=== PATIENT | female | born 1955 | race Caucasian/White ===

== ENCOUNTER 2022-04-23 10:00 | Outpatient (RCR) | payer MEDICARE, OTHER, SELFPAY | END 2022-05-27 15:13 | disposition home or self-care (01) | PROVIDERS: Visit Provider Orthopaedic Surgery Sports Medicine | DX: M17.12 Unilateral primary osteoarthritis, left knee (principal); Z51.89 Encounter for other specified aftercare | CPT/HCPCS: 97110; 97112; 97116; 97140; 97530 ==

== ENCOUNTER 2023-02-28 14:42 | Outpatient (CLI) | payer MEDICARE, OTHER, SELFPAY | END 2023-02-28 14:43 | disposition home or self-care (01) | LOC: NFLDREF 03-02 06:07 | PROVIDERS: PCP Family Medicine; Referring Provider Family Medicine; Visit Provider Family Medicine | DX: Z01.818 Encounter for other preprocedural examination (principal); G47.00 Insomnia, unspecified | CPT/HCPCS: 87077; 87086; 87186 ==

== ENCOUNTER 2023-03-10 06:45 | Day surgery (SDC) | payer MEDICARE, OTHER, SELFPAY ==
[2023-03-10] VITALS (8 sets, daily range): BP systolic 110–160; BP diastolic 67–94; PULSE 52–76; RESP 16; TEMP 36.6–36.7; O2SAT 93–99; BMI 51.0
[2023-03-10] MEDS: LACTATED RINGERS 1000 ML 1,000 ML 100 ML IV (06:55)
[2023-03-10] MEDS: SODIUM CHLORIDE 0.9 % (FLUSH) 10 ML SYRINGE IVF (07:32)
--- NOTE | 2023-03-10 07:33 | SUR.PREOP ---
TIME?OUT:?0749 PT/RN/MDA?VERIFICATION?OF?SURGICAL?SITE Right Arm,?PROCEDURE Axe Block,?AND?CONSENT OBTAINED?PRIOR?TO?INVASIVE?PROCEDURE.
[2023-03-10] MEDS: fentaNYL 100 MCG/2 ML inj IVP (07:50)
[2023-03-10] MEDS: MIDAZOLAM HCL 1 MG/ML inj IVP (07:50)
--- NOTE | 2023-03-10 08:08 | W.PM.NB ---
Nerve Block Nerve Block Time Seen by Provider: 07:56 Date Seen: 03/10/23 Type of block requested by surgeon for post-operative analgesia: axillary Side: right Time out performed: Yes Verification of patient name: Yes Verification of date of : Yes Site marking: site marked Name of person performing procedure: Hussein Continuous monitoring Was continuous monitoring of O2 sat, B/P, director, recorded every 15 minutes?: Yes Procedure Checklist: sterile prep, needles and gloves Ultrasound guided. Images saved: Yes Medications given in 5ml increments after negative aspiration: Ropivicaine %: 0.5 mL: 30 Needle gauge: 22 Patient tolerated procedure well: Yes Additional comments: Needle noted adjacent to nerve Block Charges Block Charge (with Pro Fee): Brachial Plexus Use of Ultrasound Machine for Block: Yes- US Guidance/pain block
--- NOTE | 2023-03-10 08:09 | W.ANESCHARGE ---
Anesthesia Charges Start Date/Time Anesthesia Start Date: 03/10/23 Anesthesia Start Time: 08:08 Stop Date/Time Anesthesia Stop Date: 03/10/23 Anesthesia Stop Time: 10:14 Summary Extremes of Age - Over 70 or under 1: MDA
[2023-03-10] MEDS: CEFAZOLIN 2 GM in 0.9 % SODIUM CHLORIDE Mini-bag 100 ML IVPB (08:17)
--- NOTE | 2023-03-10 09:51 | P.ORPRC_ITS ---
Procedure Note Date of procedure: 03/10/23 Procedure: PREOPERATIVE DIAGNOSIS: 1. Right thumb CMC osteoarthritis, primary, severe POSTOPERATIVE DIAGNOSIS: 1. Right thumb CMC osteoarthritis, primary, severe PROCEDURE: 1. Right thumb CMC arthroplasty with transfer of FCR tendon carpometacarpal area without free graft / tendon interposition (LRTI) SURGEON: Imtiaz Fabian M.D. UMBRELLA TIPPER MACHINE: Linda Samuel Pa-c. Of note, an advertising assistant was critical for this case to aid in patient positioning, arm manipulation, instrument exchange, and closure. ANESTHESIA: Regional block EBL: 5 mL TOURNIQUET: 78 min at 250 torr-forearm tourniquet IMPLANTS: Arthrex 4.75 mm BioComposite interference screw COMPLICATIONS: None evident INDICATIONS: The patient is a pleasant 68-year-old female. They have experienced significant pain about the thumb CMC joint on the right upper extremity. Nonoperative management including cortisone injection, activity modification, bracing, rest, oral NSAIDs, etc has not provided long-term relief. Given the failure of nonoperative management, surgery was recommended. FINDINGS: Severe osteoarthritis of the 1st CMC joint seen by osteophyte formation, chondral loss, and joint space narrowing, consistent with CMC osteoarthritis DESCRIPTION OF PROCEDURE: After a thorough discussion of risks, benefits, and alternatives, the patient was brought to the operating room and placed upon the operating table. Induction of anesthesia was undertaken as previously noted. 2 g IV Ancef was administered within 1 hr incision preoperatively. Appropriate time-out was performed identifying proper patient, site, and procedure. The right upper extremity was prepped and draped in the appropriate sterile fashion using ChloraPrep. The limb was exsanguinated and tourniquet inflated. A curvilinear incision was made along the ulnar border of the 1st metacarpal with the curved portion extending volar just proximal to the CMC joint. Sharp incision through skin and blunt dissection to subcutaneous tissue allowed identification and protection of the crossing neurovascular structures including the SBRN. The dorsal capsule off the metacarpal base was sharply divided and subperiosteally elevated. The crossing branch of radial artery was visualized in the proximal extent of the wound, its small branches to the capsule were coagulated, but the rest the artery was protected. The trapezium was freed from the surrounding capsular tissues circumferentially with a combination of 15 blade and a [place] blade. After freeing the trapezium from the superficial tissues, the bone was quartered with a microsagittal saw a majority of the way through the bone. Caution was taken not to penetrate completely so as not to injure the FCR tendon in the deep portion of the wound. The osteotomy was completed with an osteotome. The quartered fragments were then removed with a combination of a rongeur, and sharp dissection cautiously with the [place] blade. We then turned our attention to the FCR tendon harvest for transfer. The tendon was easily palpable approximately 10 cm proximal from the wrist crease. A transverse incision was made overlying this musculotendinous junction. Blunt dissection through subcutaneous tissue allowed identification of the FCR tendon and sheath. The FCR was probed in the deep portion of the trapezium wound, and after talking on this, confirmed the more proximal location of the FCR. The FCR sheath was entered, the tendon sharply divided from the deeper muscle, and a Metzenbaum scissors was utilized to release any adhesions within the sheath distally toward the wrist. We also released any adhesions within the FCR tunnel through the carpus with a [place] elevator. Then a combination of a probe and a hemostat allowed us to bluntly free and exposed the FCR tendon out the trapezial void. 2-0 FiberWire was utilized to capture the deep capsule for eventual anchovy securing of the transferred FCR tendon and a 2nd 2-0 FiberWire was passed near the FCR tendon insertion for eventual reapproximation of the looped tendon onto itself. In order to pass it through the metacarpal base, a guide pin was passed approximately 12 mm distal from the metacarpal base in plane with the thumbnail directed towards the metacarpal base coming out through the articular surface / beak junction. After confirming proper location, this was over reamed with a 5.5 mm Reamer. A tendon Passer was then utilized to help transfer the freed FCR tendon through this tunnel. Once the thumb was held in proper position of slight traction and slight extension with neutral rotation and abduction, the tendon was looped back on itself and tied with the previously passed 2-0 FiberWire secured to the deeper FCR near the 2nd metacarpal base distal insertion site. Next, the interference screw was placed while controlling the thumb from distal toward the proximal. We then reapproximated the dorsal capsule through the now passed tendon with 3-0 Vicryl. This occurred while positioning the thumb metacarpal in slight abduction and extension with proper height maintained based on direct visualization to the 2nd metacarpal base. Finally, 2-0 FiberWire was utilized to capture the deep capsule for eventual anchovy securing of the transferred FCR tendon. We then created an anchovy with remaining tendon with 2 separate Ryan needles that allowed us to pass the tails of the deeper capsular 2-0 FiberWire through this. Excellent securing of the tendon was achieved. A thorough irrigation with normal saline was then performed. Closure was performed with 3-0 Vicryl for subcutaneous, and 4-0 Monocryl for subcuticular layers, respectively. PLAN: 1. Elevate operative extremity at or above heart level. 2. Ice, acetominophen and/or ibuprofen, and Percocet for pain as needed. 3. Finger/wrist range of motion as tolerated. 4. Keep the splint clean, dry, and intact until follow-up. 5. Follow up with PA visit in 2 weeks removal of splint and application of thumb spica cast. Then follow-up at the 4 week amy for removal of cast and OT visit for Orthoplast splint fabrication which should be scheduled immediately after the orthopedic clinic visit that day on the 4 week amy
--- NOTE | 2023-03-10 10:17 | W.ANESCHARGE ---
Anesthesia Charges Start Date/Time Anesthesia Start Date: 03/10/23 Anesthesia Start Time: 08:08 Stop Date/Time Anesthesia Stop Date: 03/10/23 Anesthesia Stop Time: 10:14
== END 2023-03-10 11:17 | disposition home or self-care (01) ==
PROVIDERS: PCP Family Medicine; Visit Provider Orthopaedic Surgery Sports Medicine
PROC: (CPT 25447; principal; 2023-03-10 08:15)
DX: M18.11 Unilateral primary osteoarthritis of first carpometacarpal joint, right hand (principal); G89.18 Other acute postprocedural pain
CPT/HCPCS: 25447; 25310; 01810; 64415; 76942; 99100; A4580; C1713; J0690; J2250; J2704; J2795; J3010; J3490; J7120

== ENCOUNTER 2023-05-27 10:30 | Outpatient (RCR) | payer MEDICARE, OTHER, SELFPAY ==
--- NOTE | 2023-04-09 19:13 | OT.OPOE ---
OT Outpatient Ortho Eval OT Outpatient Ortho Eval* Start: 04/09/23 07:16 Freq: Status: Active Protocol: Document 04/09/23 07:17 AMB (Rec: 04/09/23 18:16 AMB [id number]) E-signed By Isa Rust, OTR/L, CLT, TAPE WEAVER OT OP Ortho Eval Details Complexity Complexity Low Insurance Information Insurance Information Medicare B Outpatient History/Precautions Current Condition/Medical Diagnosis Referring Provider Teo Duval PA-C Treatment Diagnosis RUE CMC arthroplasty Date of Onset 03/10/23 Medical Conditions HTN,CA Other Conditions PMH (copied from ortho chart) Active Problems (Updated 04/01 @ 12:17 by Teo Duval PA-C) Osteoarthritis of carpometacarpal joint of left thumb (Acute) Severe M18.12 - Unilateral primary osteoarthritis of first carpometacarpal joint, left hand (ICD-10) Osteoarthritis of carpometacarpal joint of right thumb (Acute) severe, [id number] M18.11 - Unilateral primary osteoarthritis of first carpometacarpal joint, right hand (ICD-10) History of arthroplasty of right wrist (Acute) 2 weeks postoperative right thumb CMC arthroplasty with transfer of FCR tendon (2022) Z96.631 - Presence of right artificial wrist joint (ICD-10 ) Group B streptococcal UTI ( Acute) N39.0 - Urinary tract infection, site not specified (ICD-10) B95.1 - Streptococcus, group b , as the cause of diseases classified elsewhere (ICD-10) Osteoarthritis of right knee ( Acute) moderate-severe M17.11 - Unilateral primary osteoarthritis, right knee ( ICD-10) Normal cardiac stress test ( Acute) 12/21, stress echo, done for skipped heart beats 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 [place] C7A.8 - Other malignant neuroendocrine tumors (ICD-10) Malignant melanoma (Acute) ressected 09/2013; follows with derm C43.9 - Malignant melanoma of skin, unspecified (ICD-10) Medical History (Updated 04/01 @ 12:17 by Teo Duval PA-C) History of arthroplasty of right wrist Z96.631 - Presence of right artificial wrist joint (ICD-10 ) Anxiety F41.9 - Anxiety disorder, unspecified (ICD-10) Arthritis M19.90 - Unspecified osteoarthritis, unspecified site (ICD-10) Incontinence R32 - Unspecified urinary incontinence (ICD-10) Reflux esophagitis K21.00 - Gastro-esophageal reflux disease with esophagitis, without bleeding (ICD-10) Cardiac arrhythmia I49.9 - Cardiac arrhythmia, unspecified (ICD-10) Elevated cholesterol E78.00 - Pure hypercholesterolemia, unspecified (ICD-10) Hypertension I10 - Essential (primary) hypertension (ICD-10) Benign thyroid cyst E04.1 - Nontoxic single thyroid nodule (ICD-10) Surgical History (Updated @ 12:19 by Heather Byrd ~ [facility], [facility]) History of arthroplasty of finger of right hand (03/10/23 ) Z96.691 - Finger-joint replacement of right hand (ICD -10) History of left knee replacement (01/21/22) Z96.652 - Presence of left artificial knee joint (ICD-10) Status post surgical removal of malignant neoplasm of skin Z98.890 - Other specified postprocedural states (ICD-10) Status post 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 Pt had her cast removed today, referred to OT for custom splinting and to start ROM. Pt will be leaving for a cruise this week-end and would like to resume her therapy in the [facility] clinic when she returns home as it is closer for her to drive. Pain Assessment Pain Present Pain Present Pain Reported Location RUE hand Description Dull, Achy Intensity 2 Range of Motion and Strength Elbow/Forearm Range of Motion and Strength Elbow/Forearm Range of Motion and AROM of BUE elbows and Strength forearms are WNL throughout. Wrist Range of Motion and Strength Wrist Range of Motion and Strength AROM of LUE wrist and hand is WNL throughout. AROM of the RUE wrist flexion is 55, ext is 50, UD is 30, RD is 5. Pt demonstrates opposition to the tip of 5th digit. Composite finger flexion 2-5 is to proximal palm. Thumb IP is 0- 55, radial abd is 30, palmar abd is 45. Strength testing is not appropriate at this stage . OT Objective Data Hand Hand Dominance Right Skin/Wounds/Edema Comments Surgical incisions are clean and dry, covered with surgical glue, no s/s of infection. OT Problems Problems Problems Decreased Strength,Decreased Range of Motion,Decreased Dexterity,Pain,Decreased Coordination,Lifting,Gripping, Pinching Other Problems Writing,Opening Containers, Computer,Fasteners Assessment Assessment Assessment Pt is a very pleasant 68yo F presenting to OT 4 weeks and 2 days s/p RUE CMC arthroplasty with orders for custom splinting and initiation of HEP. Pt demonstrates limited AROM, weakness, mild swelling, and pain in her RUE which is also her dominant hand. These impairments limit pt's ability to open containers, write, use the computer, brush her teeth and hair, web site manager, lift, etc. Pt will benefit from skilled OT intervention for custom splinting for protective healing and to address deficits in order to restore full, pain-free use of her RUE. Occupational Therapy Treatment Plan - OP Potential Rehabilitation Potential Good Set Goals Goals Set with Patient Yes Goals Goals 1. Pt will be independent and compliant with HEP and splinting in order to allow proper healing and to resume full, pain-free use of the RUE . 4 weeks. 2. Pt will demonsrate full, pain-free AROM of the RUE in order to improve ability to grasp and hold items, use computer and resume independence in all aspects of her ADL and IADL routine. 8 weeks 3. Pt will demonstrate pain- free RUE web site manager and pinch strength comparable to her LUE in order to improve ability to grasp heavier items, open containers and lift heavier items in her kitchen. 10-12 weeks. Treatment Plan Treatment Plan Evaluation,Edema Control,Joint Mobilization,Manual Therapy, Splinting,Ultrasound,Wound Care/Scar Management, Therapeutic Exercise, Therapeutic Activities,Self Care/Home Management,Education Expected Frequency 1-2x Week Expected Duration 8-10 Weeks Home Program Home Program Home Program Initiated,Revised,Compliant, Non-compliant Home Program Specifics 04/09/23 Initiated HEP including elevated non-resisted mm pumps, non resisted finger/ thumb ext/abd, opposition, IP flexion, radial and palmar abd , thumb ext, wrist flex/ext, and wrist RD/UD. Certification Certification I Certify That: Therapy Services Provided, Therapy Plan Established, Therapy Plan Reviewed Recertification Information Recertification Information Initial Certification Date 04/09/23 Recertification Due Date 07/08/23 Reasons to Continue Skilled Therapy Initiated OT today to address orders for custom splinting and rehabilitation following RUE CMC arthroplasty Rehabilitation Potential Good Continued Plan of Care and Interventions See above Provider Signature Shows Agreement With POC & Medical Necessity Physician Comment/Change Comment or Changes Physician NPI Number #
--- NOTE | 2023-04-09 19:13 | OT.OPOE ---
OT Outpatient Ortho Eval OT Outpatient Ortho Eval* Start: 04/09/23 07:16 Freq: Status: Active Protocol: Document 04/09/23 07:17 AMB (Rec: 04/09/23 18:16 AMB [id number]) E-signed By Isa Rust, OTR/L, CLT, PYTHON WEB DEVELOPER OT OP Ortho Eval Details Complexity Complexity Low Insurance Information Insurance Information Medicare B Outpatient History/Precautions Current Condition/Medical Diagnosis Referring Provider Teo Duval PA-C Treatment Diagnosis RUE CMC arthroplasty Date of Onset 03/10/23 Medical Conditions HTN,CA Other Conditions PMH (copied from ortho chart) Active Problems (Updated 04/01 @ 12:17 by Teo Duval PA-C) Osteoarthritis of carpometacarpal joint of left thumb (Acute) Severe M18.12 - Unilateral primary osteoarthritis of first carpometacarpal joint, left hand (ICD-10) Osteoarthritis of carpometacarpal joint of right thumb (Acute) severe, [id number] M18.11 - Unilateral primary osteoarthritis of first carpometacarpal joint, right hand (ICD-10) History of arthroplasty of right wrist (Acute) 2 weeks postoperative right thumb CMC arthroplasty with transfer of FCR tendon (2022) Z96.631 - Presence of right artificial wrist joint (ICD-10 ) Group B streptococcal UTI ( Acute) N39.0 - Urinary tract infection, site not specified (ICD-10) B95.1 - Streptococcus, group b , as the cause of diseases classified elsewhere (ICD-10) Osteoarthritis of right knee ( Acute) moderate-severe M17.11 - Unilateral primary osteoarthritis, right knee ( ICD-10) Normal cardiac stress test ( Acute) 12/21, stress echo, done for skipped heart beats 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 [place] C7A.8 - Other malignant neuroendocrine tumors (ICD-10) Malignant melanoma (Acute) ressected 09/2013; follows with derm C43.9 - Malignant melanoma of skin, unspecified (ICD-10) Medical History (Updated 04/01 @ 12:17 by Teo Duval PA-C) History of arthroplasty of right wrist Z96.631 - Presence of right artificial wrist joint (ICD-10 ) Anxiety F41.9 - Anxiety disorder, unspecified (ICD-10) Arthritis M19.90 - Unspecified osteoarthritis, unspecified site (ICD-10) Incontinence R32 - Unspecified urinary incontinence (ICD-10) Reflux esophagitis K21.00 - Gastro-esophageal reflux disease with esophagitis, without bleeding (ICD-10) Cardiac arrhythmia I49.9 - Cardiac arrhythmia, unspecified (ICD-10) Elevated cholesterol E78.00 - Pure hypercholesterolemia, unspecified (ICD-10) Hypertension I10 - Essential (primary) hypertension (ICD-10) Benign thyroid cyst E04.1 - Nontoxic single thyroid nodule (ICD-10) Surgical History (Updated @ 12:19 by [facility]rd ~ [facility] History of arthroplasty of finger of right hand (03/10/23 ) Z96.691 - Finger-joint replacement of right hand (ICD -10) History of left knee replacement (01/21/22) Z96.652 - Presence of left artificial knee joint (ICD-10) Status post surgical removal of malignant neoplasm of skin Z98.890 - Other specified postprocedural states (ICD-10) Status post 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 Pt had her cast removed today, referred to OT for custom splinting and to start ROM. Pt will be leaving for a cruise this week-end and would like to resume her therapy in the [facility] when she returns home as it is closer for her to drive. Pain Assessment Pain Present Pain Present Pain Reported Location RUE hand Description Dull, Achy Intensity 2 Range of Motion and Strength Elbow/Forearm Range of Motion and Strength Elbow/Forearm Range of Motion and AROM of BUE elbows and Strength forearms are WNL throughout. Wrist Range of Motion and Strength Wrist Range of Motion and Strength AROM of LUE wrist and hand is WNL throughout. AROM of the RUE wrist flexion is 55, ext is 50, UD is 30, RD is 5. Pt demonstrates opposition to the tip of 5th digit. Composite finger flexion 2-5 is to proximal palm. Thumb IP is 0- 55, radial abd is 30, palmar abd is 45. Strength testing is not appropriate at this stage . OT Objective Data Hand Hand Dominance Right Skin/Wounds/Edema Comments Surgical incisions are clean and dry, covered with surgical glue, no s/s of infection. OT Problems Problems Problems Decreased Strength,Decreased Range of Motion,Decreased Dexterity,Pain,Decreased Coordination,Lifting,Gripping, Pinching Other Problems Writing,Opening Containers, Computer,Fasteners Assessment Assessment Assessment Pt is a very pleasant 68yo F presenting to OT 4 weeks and 2 days s/p RUE CMC arthroplasty with orders for custom splinting and initiation of HEP. Pt demonstrates limited AROM, weakness, mild swelling, and pain in her RUE which is also her dominant hand. These impairments limit pt's ability to open containers, write, use the computer, brush her teeth and hair, treer, lift, etc. Pt will benefit from skilled OT intervention for custom splinting for protective healing and to address deficits in order to restore full, pain-free use of her RUE. Occupational Therapy Treatment Plan - OP Potential Rehabilitation Potential Good Set Goals Goals Set with Patient Yes Goals Goals 1. Pt will be independent and compliant with HEP and splinting in order to allow proper healing and to resume full, pain-free use of the RUE . 4 weeks. 2. Pt will demonsrate full, pain-free AROM of the RUE in order to improve ability to grasp and hold items, use computer and resume independence in all aspects of her ADL and IADL routine. 8 weeks 3. Pt will demonstrate pain- free RUE treer and pinch strength comparable to her LUE in order to improve ability to grasp heavier items, open containers and lift heavier items in her kitchen. 10-12 weeks. Treatment Plan Treatment Plan Evaluation,Edema Control,Joint Mobilization,Manual Therapy, Splinting,Ultrasound,Wound Care/Scar Management, Therapeutic Exercise, Therapeutic Activities,Self Care/Home Management,Education Expected Frequency 1-2x Week Expected Duration 8-10 Weeks Home Program Home Program Home Program Initiated,Revised,Compliant, Non-compliant Home Program Specifics 04/09/23 Initiated HEP including elevated non-resisted mm pumps, non resisted finger/ thumb ext/abd, opposition, IP flexion, radial and palmar abd , thumb ext, wrist flex/ext, and wrist RD/UD. Certification Certification I Certify That: Therapy Services Provided, Therapy Plan Established, Therapy Plan Reviewed Recertification Information Recertification Information Initial Certification Date 04/09/23 Recertification Due Date 07/08/23 Reasons to Continue Skilled Therapy Initiated OT today to address orders for custom splinting and rehabilitation following RUE CMC arthroplasty Rehabilitation Potential Good Continued Plan of Care and Interventions See above Provider Signature Shows Agreement With POC & Medical Necessity Physician Comment/Change Comment or Changes Physician NPI Number #
== END 2023-06-05 10:09 | disposition home or self-care (01) ==
PROVIDERS: PCP Family Medicine; Visit Provider Physician Assistant Surgical
DX: Z96.631 Presence of right artificial wrist joint (principal); Z51.89 Encounter for other specified aftercare
CPT/HCPCS: 97110; 97140; 97165; L3806; X5282

== ENCOUNTER 2024-03-02 10:11 | Outpatient (CLI) | payer MEDICARE, OTHER, SELFPAY ==
--- OUTSIDE RECORDS SUMMARY | 2024-03-02 10:15 | XMS_ITS | Referral Summary ---
Author Organization [facility] Address [address] [place] [address] Care Team Providers Care Manager College Name Role Phone Elsewhere, Pcp Primary Care Provider Unavailabl e Source Comments Patient records contain information from all sites at [facility]. For routine questions regarding patient records, call [phone] during business hours, M-F 8:00 AM - 5:00 PM Central Time. Record requests for emergency care only can be directed to [phone] at any time.[facility] Allergies No known active allergies Medications Medication Sig Dispensed Refills Start Date End Date Status itgwe-5c-ffz-epa-fish oil-D3 360 mg-1,200 mg -1,000 unit capsule Take 1,200 mg by mouth daily. Active metoprolol succinate (TOPROL-XL) 200 mg 24 hr tablet Take 200 mg by mouth daily. Active famotidine (PEPCID) 40 mg tablet Take 40 mg by mouth 2 (two) times a day. Active DULoxetine (CYMBALTA) [address] capsule TAKE 1 CAPSULE BY MOUTH DAILY FOR 1 MONTH, THEN INCREASE TO 60MG DAILY 06/27/2023 Active celecoxib (CeleBREX) 100 mg capsule Take 100 mg by mouth as needed. 04/01/2023 Active amoxicillin (AMOXIL) 500 mg tablet Take 500 mg by mouth 3 (three) times a day. 09/22/2023 Active amLODIPine (NORVASC) 5 mg tablet Take 5 mg by mouth daily. 06/28/2023 Active cyanocobalamin, vitamin B-12, 5,000 mcg capsule Take 5,000 mcg by mouth daily. Active calcium carbonate-vitamin D3 (Calcium 600 with Vitamin D3) 600 mg-10 mcg (400 unit) tablet,chewable Chew 1 tablet daily. Active KRILL OIL ORAL Take 400 mg by mouth daily. Active melatonin 10 mg capsule Take 1 tablet by mouth at bedtime. 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 Immunizations Name Administration Dates Next Due Influenza, Quadrivalent, Adjuvanted, Preservativ e Free 06/16/2022 Social History Tobacco Use Types Packs/Day Years Used Date Smoking Tobacco: Never Passive Smoke Exposure: Past Smokeless Tobacco: Never Comments:Both parents smoked in the home growing up Alcohol Use Standard Drinks/Week Comments Not Currently 0 (1 standard drink = 0.6 oz pure alcohol) MONTHLY 1 glass of wine [facility] Scotty Gearities Answer Date Recorded In the past 12 months has [facility] [employer], gas, oil, or water [employer] threatened to shut off services in your home? No 09/22/2023 Exercise Vital Sign Answer Date Recorde d On average, how many days pe r week do you engage in moderate to strenuous exercise (like a brisk walk)? 2 days 09/22/2023 On average, how many minutes do you engage in exercise at this level? 10 min 09/22/2023 Hunger Vital Sign Answer Date Recorded Within the past 12 months, y ou worried that your food would run out before you got the money to buy more. Never true 09/22/19 24 Within the past 12 months, t he food you bought just didn't last and you didn't have money to get more. Never true 09/22/2023 PRAPARE - Transportation Answer Date Re corded In the past 12 months, has l ack of transportation kept you from medical appointments or from getting medications? No 09/02 In the past 12 months, has l ack of transportation kept you from meetings, work, or from getting things needed for daily living? No 09/22/2023 Nutrition Answer Date Recorded Nutrition: EVOO Fat Source Unknown 09/22 On average, how many serving s of fruits and vegetables do you eat per day (serving size is equal to 1 cup or approximately the size of a tennis ball)? 5 or more 09/22/2023 Dental Answer Date Recorded Dental: Regular Dentist Yes 09/22/19 Employment Answer Date Recorded Employment status Retired 09/22/2023 Housing Stability Answer Date Recorded What is your living situation today? I have a [facility] place to live 09/22/2023 Sex and Gender Information Value Date Recorded Sex Assigned at Female 09/22/2023 11:56 AM FRUIT CANNER Gender Identity Female 09/22/2023 11:56 AM FRUIT CANNER Sexual Orientation Straight 09/22/2023 11 :56 AM FRUIT CANNER Last Filed Vital Signs Vital Sign Reading Time Taken Comments Blood Pressure 133/84 09/29/2023 1:54 PM FRUIT CANNER Pulse 67 09/29/2023 1:54 PM FRUIT CANNER Temperature 36.3 ??C (97.4 ??F) 09/29/2023 1:54 PM CS T Respiratory Rate - - Oxygen Saturation 96% 09/29/2023 1:54 PM FRUIT CANNER Inhaled Oxygen Concentration - - Weight 104 kg (228 lb 13.4 oz) 09/29/2023 1:54 P M FRUIT CANNER Height 171.1 cm (5' 7.36) 09/29/2023 1:54 PM CS T Body Mass Index 35.46 09/29/2023 1:54 PM FRUIT CANNER Plan of Treatment Upcoming Encounters Date Type Department Care Team (Latest Contact Info) Description 05/13/2024 12:15 PM CDT Clinical Communication Virtual Review in [place], [place] [address] [place] [phone] 05/14/2024 8:45 AM CDT Appointment Department of Radiology, [facility], in [place], [place] [address] [place] [phone] Ramiro Savage APRN, C.N.P., D.N.P. [address] [place] [phone] 05/14/2024 11:00 AM CDT Office Visit Division of Pulmonary Medicine in [place], [place] [address] [place] [phone] Ramiro Savage APRN, C.N.P., D.N.P. [address] [place] [phone] Medical Devices Implanted Type Area E Commerce Marketing Manager Device Identifier Shelf Expiration Date Model / Serial / Lot Knee Implant- 022 Implanted:12/30 (Quantity not on file) Knee Implant Left: Knee Care Teams Manager College Relationship Specialty Start Date End Date Elsewhere, Pcp PCP - General Internal Medicine 09/26/23
--- OUTSIDE RECORDS SUMMARY | 2024-03-02 10:15 | XMS_ITS ---
Author Organization [facility] Address [address] [place] [address] Care Team Providers Care Brand Ambassador Name Role Phone Unavailable Unavailable Unavailable Surgery Details Not on file Complications Check Surgery Details section. Procedure Estimated Blood Loss Check Surgery Details section. Procedure Findings Check Surgery Details section. Procedure Specimens Taken Check Surgery Details section.
--- OUTSIDE RECORDS SUMMARY | 2024-03-02 10:15 | XMS_ITS | Clinical Summary ---
Author Organization [facility] Address [address] [place] [address] Care Team Providers Care Envelope Machine Operator Name Role Phone Elsewhere, Pcp Primary Care Provider Unavailabl e Source Comments Patient records contain information from all sites at [facility]. For routine questions regarding patient records, call [phone] during business hours, M-F 8:00 AM - 5:00 PM Central Time. Record requests for emergency care only can be directed to [phone] at any time.[facility] Allergies No known active allergies Medications Medication Sig Dispensed Refills Start Date End Date Status dvhgv-1y-klf-epa-fish oil-D3 360 mg-1,200 mg -1,000 unit capsule [...] Influenza, Quadrivalent, Adjuvanted, Preservativ e Free 06/16/2022 Family History Medical History Relation Name Comments Coronary artery disease Father Alejandro Hear t Attack Liver disease Father Alejandro CA Liver 1989 Lung cancer Father Alejandro age 73 199 0 Skin cancer Father Alejandro Basel cells COPD Mother Kia Hypertension Mother Kia Relation Name Status Comments Father Alejandro Mother Kia Social History Tobacco Use Types Packs/Day Years Used Date Smoking Tobacco: Never Passive Smoke Exposure: Past Smokeless Tobacco: Never Comments:Both parents smoked in the home growing up Alcohol Use Standard Drinks/Week Comments Not Currently 0 (1 standard drink = 0.6 oz pure alcohol) MONTHLY [address] [facility] [employer]aze[employer]ities Answer Date Recorded In the past 12 months has e [employer], gas, oil, or water [employer] threatened to shut off services in your [...] your living situation today? I have a [facility] place to live 09/22/2023 Sex and Gender Information Value Date Recorded Sex Assigned at Female 09/22/2023 11:56 AM TRACER BULLET SECTION SUPERVISOR Gender Identity Female 09/22/2023 11:56 AM TRACER BULLET SECTION SUPERVISOR Sexual Orientation Straight 09/22/2023 11 :56 AM TRACER BULLET SECTION SUPERVISOR Last Filed Vital Signs Vital Sign Reading Time Taken Comments Blood Pressure 133/84 09/29/2023 1:54 PM TRACER BULLET SECTION SUPERVISOR Pulse 67 09/29/2023 1:54 PM TRACER BULLET SECTION SUPERVISOR Temperature 36.3 ??C (97.4 ??F) 09/29/2023 1:54 PM CS T Respiratory Rate - - Oxygen Saturation 96% 09/29/2023 1:54 PM TRACER BULLET SECTION SUPERVISOR Inhaled Oxygen Concentration - - Weight 104 kg (228 lb 13.4 oz) 09/29/2023 1:54 P M TRACER BULLET SECTION SUPERVISOR Height 171.1 cm (5' 7.36) 09/29/2023 1:54 PM CS T Body Mass Index 35.46 09/29/2023 1:54 PM TRACER BULLET SECTION SUPERVISOR Plan of Treatment Upcoming Encounters Date Type Department Care Team (Latest Contact Info) Description 05/13/2024 12:15 PM CDT Clinical Communication Virtual Review in [place], [place] [address] [place] [phone] 05/14/2024 8:45 AM CDT Appointment Department of Radiology, [facility], in [place], [place] [address] [place] [phone] Ramiro Savage APRN, C.N.P., D.N.P. [address] [place] [phone] 05/14/2024 11:00 AM CDT Office Visit Division of Pulmonary Medicine in [place], [place] [address] [place] [phone] Ramiro Savage APRN, C.N.P., D.N.P. [address] [place] [phone] Health Maintenance Due Date Last Done Comments Bone Density Scan (Osteoporosis Screen) 1953 CT Colonography 1953 Cologuard 1955 Colonoscopy 1953 Colorectal Cancer Surveillance 1953 Fasting Glucose for Diabetes Screening 1955 Hepatitis C Screening 1955 Mammogram 1953 DTaP,Tdap,and Td Vaccines (1 - Tdap) 02/11/1972 Zoster Vaccines (1 of 2) 2003 Pneumococcal vaccine (65+ years) (1 of 1 - PCV) 2017 COVID-19 Vaccine (1 - 2022- season) 2023 Influenza Vaccine (#1) 2023 06/16/2022 Depression Screening (Annual PHQ-2) 09/01/2023 Fall Risk Screen (Annual) 09/01/2023 Medical Devices Implanted Type Area Repairer Helper Device Identifier Shelf Expiration Date Model / Serial / Lot Knee Implant- 022 Implanted:12/30 (Quantity not on file) Knee Implant Left: Knee Care Teams Envelope Machine Operator Relationship Specialty Start Date End Date Elsewhere, Pcp PCP - General Internal Medicine 09/26/23
== END 2024-03-02 10:12 | disposition home or self-care (01) ==
PROVIDERS: PCP Family Medicine; Visit Provider Family Medicine
DX: I10 Essential (primary) hypertension (principal); E78.00 Pure hypercholesterolemia, unspecified; E04.1 Nontoxic single thyroid nodule
CPT/HCPCS: 80053; 80061; 82043; 82570; 84443

== ENCOUNTER 2025-03-23 06:44 | Day surgery (SDC) | payer MEDICARE, SELFPAY ==
[2025-03-23] VITALS (9 sets, daily range): BP systolic 110–143; BP diastolic 67–96; PULSE 63–85; RESP 14–16; TEMP 35.9–36.6; O2SAT 93–96; BMI 32.7
--- NOTE | 2025-03-23 07:19 | W.PM.H&PU ---
History & Physical Update History & Physical Update H&P Reviewed and patient assessed: No changes noted
[2025-03-23] MEDS: LACTATED RINGERS 1000 ML 1,000 ML 100 ML IV (07:46)
[2025-03-23] MEDS: SODIUM CHLORIDE 0.9 % (FLUSH) 10 ML SYRINGE IVF (07:46)
--- NOTE | 2025-03-23 07:50 | SUR.PREOP ---
TIME?OUT:?0750 PT/RN/MDA?VERIFICATION?OF?SURGICAL?SITE,?PROCEDURE,?AND?CONSENT OBTAINED?PRIOR?TO?INVASIVE?PROCEDURE.
[2025-03-23] MEDS: MIDAZOLAM HCL 1 MG/ML inj IVP (07:52)
--- NOTE | 2025-03-23 08:09 | W.PM.NB ---
Nerve Block Nerve Block Time Seen by Provider: 07:55 Date Seen: 03/23/25 Type of block requested by surgeon for post-operative analgesia: axillary Side: left Time out performed: Yes Verification of patient name: Yes Verification of date of : Yes Site marking: site marked Name of person performing procedure: Hussein Continuous monitoring Was continuous monitoring of O2 sat, B/P, engine monitor, recorded every 15 minutes?: Yes Procedure Checklist: sterile prep, needles and gloves Ultrasound guided. Images saved: Yes Medications given in 5ml increments after negative aspiration: Ropivicaine %: 0.5 mL: 20 Needle gauge: 22 Patient tolerated procedure well: Yes Additional comments: Needle noted adjacent to nerve Block Charges Block Charge (with Pro Fee): Brachial Plexus Use of Ultrasound Machine for Block: Yes- US Guidance/pain block
--- NOTE | 2025-03-23 08:14 | P.ANES_ITS ---
Anesthesia Charges Start Date/Time Anesthesia Start Date: 03/23/25 Anesthesia Start Time: 08:02 Stop Date/Time Anesthesia Stop Date: 03/23/25 Anesthesia Stop Time: 10:09 Summary Extremes of Age - Over 70 or under 1: MDA Coding CPT Codes CPT Codes: ANESTH LOWER ARM SURGERY - 93958 ([id number]) P2 - PATIENT W/MILD SYST DISEASE, QK - LEAD ACCOUNTANT 2-4 CNCRNT ANES PROC, QX - SEMI DRIVER SVC W/ MD MED DIRECTION Additional Codes: Summary - Extremes of Age - Over 70 or under 1: MDA ([id number])
--- NOTE | 2025-03-23 08:14 | W.ANESCHARGE ---
Anesthesia Charges Start Date/Time Anesthesia Start Date: 03/23/25 Anesthesia Start Time: 08:02 Stop Date/Time Anesthesia Stop Date: 03/23/25 Anesthesia Stop Time: 10:09 Summary Extremes of Age - Over 70 or under 1: MDA Coding CPT Codes CPT Codes: ANESTH LOWER ARM SURGERY - 66611 ([id number]) P2 - PATIENT W/MILD SYST DISEASE, QK - PARK ACTIVITIES COORDINATOR 2-4 CNCRNT ANES PROC, QX - BUILD AUTOMATION ENGINEER SVC W/ MD MED DIRECTION Additional Codes: Summary - Extremes of Age - Over 70 or under 1: MDA ([id number])
--- NOTE | 2025-03-23 10:10 | P.ANES_ITS ---
Anesthesia Charges Start Date/Time Anesthesia Start Date: 03/23/25 Anesthesia Start Time: 08:02 Stop Date/Time Anesthesia Stop Date: 03/23/25 Anesthesia Stop Time: 10:09 Coding CPT Codes CPT Codes: ANESTH LOWER ARM SURGERY - 44306 ([id number]) P2 - PATIENT W/MILD SYST DISEASE, QK - TOY ASSEMBLER WOOD 2-4 CNCRNT ANES PROC, QX - PLOW HOLDER SVC W/ MD MED DIRECTION
--- NOTE | 2025-03-23 10:10 | W.ANESCHARGE ---
Anesthesia Charges Start Date/Time Anesthesia Start Date: 03/23/25 Anesthesia Start Time: 08:02 Stop Date/Time Anesthesia Stop Date: 03/23/25 Anesthesia Stop Time: 10:09 Coding CPT Codes CPT Codes: ANESTH LOWER ARM SURGERY - 02669 ([id number]) P2 - PATIENT W/MILD SYST DISEASE, QK - SYRUP MIXER HELPER 2-4 CNCRNT ANES PROC, QX - CROP DUSTER HELPER SVC W/ MD MED DIRECTION
--- NOTE | 2025-03-23 13:42 | PM.ORPRC ---
Procedure Note Date of procedure: 03/23/25 Procedure: PREOPERATIVE DIAGNOSIS: 1. Left thumb CMC osteoarthritis, primary, severe POSTOPERATIVE DIAGNOSIS: 1. Left thumb CMC osteoarthritis, primary, severe PROCEDURE: 1. Left thumb CMC arthroplasty/suspensionplasty with Arthrex FiberLock suspension system 2. Intraoperative fluoroscopy operated and interpreted by Imtiaz Fabian M.D. for intraoperative evaluation of trapezium excision confirmation, drill/implant positioning and direction, and resting thumb metacarpal position after securing the implant device. Fluoroscopy time was 41 sec. SURGEON: Imtiaz Fabian M.D. ELECTRICITY TRADER: Jose CALZADA. Of note, an assisted living assistant was critical for this case to aid in patient positioning, arm manipulation, instrument exchange, and closure. ANESTHESIA: Regional block + MAC EBL: 10 mL TOURNIQUET: 65 minutes at 225 torr - arm tourniquet IMPLANTS: Arthrex Fiberlock system (DX Fibertak & 3.5mm PEEK SwiveLock SL anchor); Arthrex micro suturetak (2.4 x 6.5mm biocomposite). COMPLICATIONS: Intraoperative ECRL insertion disruption; identified and tendon repaired back to 2nd metacarpal base with Arthrex micro suturetak INDICATIONS: The patient is a pleasant 70-year-old female. They have experienced significant pain about the thumb CMC joint on the left upper extremity. Nonoperative management including cortisone injection, activity modification, bracing, rest, oral NSAIDs, etc has not provided long-term relief. Given the failure of nonoperative management, surgery was recommended. FINDINGS: Severe osteoarthritis of the 1st CMC joint seen by osteophyte formation, chondral loss, and joint space narrowing, consistent with CMC osteoarthritis DESCRIPTION OF PROCEDURE: After a thorough discussion of risks, benefits, and alternatives, the patient was brought to the operating room and placed upon the operating table. Induction of anesthesia was undertaken as previously noted. 1 g IV Ancef was administered within 1 hr incision preoperatively. Appropriate time-out was performed identifying proper patient, site, and procedure. The left upper extremity was prepped and draped in the appropriate sterile fashion using ChloraPrep. The limb was exsanguinated and tourniquet inflated. We turned our attention to the left thumb CMC arthroplasty/suspensionplasty procedure: A longitudinal incision was made along the ulnar border of the 1st metacarpal extending to the scaphoid level. Sharp incision through skin and blunt dissection to subcutaneous tissue allowed identification and protection of the crossing neurovascular structures including the SBRN. The dorsal capsule off the 1st metacarpal base was sharply divided and subperiosteally elevated. The crossing branch of radial artery was visualized in the proximal extent of the wound, its small branches to the capsule were coagulated, but the remaining artery was protected. The trapezium was freed from the surrounding capsular tissues circumferentially with a combination of 15 blade and a [place] blade. After freeing the trapezium from the superficial tissues, the bone was halved with a microsagittal saw a majority of the way through the bone. Caution was taken not to penetrate completely so as not to injure the FCR tendon in the deep portion of the wound. In addition, caution was taken along the dorsal-ulnar aspect of the trapezium to avoid injury to the ECRL insertion on the 2nd metacarpal base. The osteotomy was completed with an osteotome. The fragments were then removed with a combination of a rongeur, and sharp dissection cautiously with the [place] blade. The Arthrex CMC arthroplasty/suspensionplasty with Arthrex FiberLock suspension system kit was opened and utilized with appropriate steps. We drilled a K-wire from radial to ulnar at the 2nd metacarpal base aiming slightly distal and ulnar so as not to be in the 2nd-3rd intermetatarsal articulation. This was confirmed with fluoroscopy. The screw-in sheath was then applied into the 2nd metacarpal base, the guide pin removed, drill applied, drilled removed, and anchor placed with excellent tactical feedback with the anchor engagement on the ulnar 2nd metacarpal outer cortical rim. Following this, we accessed the base of the 1st metacarpal on the radial side approximately mid axial line just distal (~ 2 mm) to the articular surface. A guide pin was placed and again confirmed fluoroscopically to be in the desired position. This was over drilled, and the fork- tip Peek eyelet allowed the sutures to span across the metacarpal base approximately in the saddle and the anchor was engaged. This was all placed with the thumb in slight adduction and minor traction to maintain the arc of the 1st-2nd metacarpal bases. We tested by axial load on the metacarpal and found to have an excellent bounce back to this resting position. Abduction and adduction was still appropriate. A thorough irrigation with normal saline was then performed. Closure was performed with 3-0 Vicryl for capsule reapproximation. During this capsular closure, a tendon stump was identified near the dorsal wrist capsule region proximally. After further dissection and evaluation, EPL, EPB, APL, APB, and the EDC to the index finger were all found to be intact. It was felt that this tendon stump was likely the ECRL from the 2nd metacarpal base. Therefore, repair of this tendon was felt to be prudent. An Arthrex micro SutureTak anchor was placed into the 2nd metacarpal base. One of pre-loaded 2-0 FiberWire sutures were then passed in [place] fashion through the distal tendon and the other tail passed in a simple fashion to allow sliding of the tendon down to the anchor body. Excellent reapproximation of the tendon to the 2nd metacarpal base was achieved. This was tied and the suture tails cut. The wrist was placed through range of motion and this repair found to be stable. Further closure was completed with 3-0 vicryl for subcutaneous closure along with 4-0 Monocryl for the subcuticular layer. PLAN: 1. Elevate operative extremity at or above heart level. 2. Ice, acetominophen and/or ibuprofen, and oxycodone for pain as needed. 3. Keep the splint clean, dry, and intact until follow-up. 4. Follow up with PA visit in 2-3 weeks removal of splint and OT visit for Orthoplast splint fabrication which should be scheduled immediately after the orthopedic clinic visit.
== END 2025-03-23 11:55 | disposition home or self-care (01) ==
LOC: OR 06:48
PROVIDERS: PCP Family Medicine; Visit Provider Orthopaedic Surgery Sports Medicine
PROC: (CPT 25448; principal; 2025-03-23 08:15)
DX: M18.12 Unilateral primary osteoarthritis of first carpometacarpal joint, left hand (principal); G89.18 Other acute postprocedural pain
CPT/HCPCS: 25448; 01830; 64415; 73140; 76000; 76942; 99100; C1713; J0690; J2250; J2405; J2704; J2795; J3010; J3490; J7120

== ENCOUNTER 2025-04-12 11:00 | Outpatient (RCR) | payer MEDICARE, OTHER, SELFPAY | END 2025-05-31 11:37 | disposition home or self-care (01) | PROVIDERS: PCP Family Medicine; Visit Provider Orthopaedic Surgery Sports Medicine | DX: Z47.1 Aftercare following joint replacement surgery (principal); Z96.651 Presence of right artificial knee joint; Z51.89 Encounter for other specified aftercare | CPT/HCPCS: 97110; 97140; 97161 ==

== ENCOUNTER 2025-05-25 13:00 | Outpatient (RCR) | payer MEDICARE, SELFPAY ==
--- NOTE | 2025-02-14 16:46 | PT.OPE ---
PT [facility] Eval PT [facility] Outpatient Eval Start: 02/14/25 15:33 Freq: Status: Active Protocol: Document 02/14/25 15:34 LSL (Rec: 02/14/25 16:00 LSL [id number]) E-signed By Emelia Diaz PT Physical Therapy Outpatient Evaluation Insurance Information Recert Due Date 05/15/25 Insurance Name Medicare B,Other; See Comments Insurance [employer] Information/Comments Medical Diagnosis s/p R TKA with knee stiffness Treating Diagnosis impaired ROM, weakness, impaired balance Referring MD Fabian Subjective Subjective Pt. has her knee replaced in [place] on 09/16/24 and has limited range since her PT finished. She has difficulty getting in and out of the car, in and out of bed getting under the sheets and going down stairs or going to the bathroom on a low toilet. Her knee remains painful especially when going down stairs and getting up from a low seat. She continues to have swelling and sometimes hits the inside of her knee on things because of the swelling. Date of Last 02/03/25 Physician Visit Date of Surgery (If 09/16/24 applicable) Current Work Status Retired Precautions Weight Bearing Full Weight Bearing Status Therapy Limitations/ Not Limited Systems Review Objective Range of Motion AROM Strength R Quad, PALMA / Swelling MEASUREMENTS L R 6 above MP 56.25 cm 56 cm 2 above MP 48 cm 50.5 cm joint line 40 cm 42 cm 6 below MP 41 cm 41 cm Balance & Gait SLS B 2-4 seconds GAIT - mildly antalgic, moderately antalgic after prolonged sitting Assessment Assessment/ Pt. is a 70 y/o female who presents with limited knee Impression ROM and function 6 months s/p R TKA. Most of her limitation that is impacting her functionally at this point is into flexion and it is reasonable that she should be able to achieve 120 degrees of flexion as we were able to get to that range today. She lacks a fair amount of extension which we will also work on, then she will need some strengthening in her new range. Treatment will consist of manual therapy, education on swelling management, therex and NM re-ed to improve her strength through an increased range and to also improve her balance which is poor bilaterally and will help decrease her risk of falls. Primary Functional bending knee to get in/out of car bed, getting off Limitations toilet, going down stairs Plan of Care Rehabilitation Good Potential Physical Therapy SHORT TERM GOALS: (3 weeks) Goals 1. AROM 0/5/120 to allow improved ability in getting off low surfaces and going down stairs. 2. Pt. doing a better job of managing her swelling which is still moderate. PNEUMATIC JACKETER GOALS: (6 weeks) 1. Increased strength on step downs to decrease pain when descending stairs. 2. Improved balance to 10 seconds per LE to decrease her fall risk. Coordination/ Referral Source Communication With Treatment Plan/ Manual Therapy,Neuromuscular Re-ed,Therapeutic Direct Interventions Exercises Frequency/Duration 2x/week 3 weeks, then 1-2x/week 3 weeks Patient Will Be Completion of LTG(s),Skills Plateau,Independent w/HEP, Discharged From Independently Progressing Therapy Evaluation Billing Untimed Code 25 Treatment Minutes Complexity Low Certification Information Initial 02/14/25 Certification Date Ending Certification 05/15/25 Date Provider Signature Yes Required Provider Signature POC & Medical Necessity Shows Agreement With Physician NPI Number Write NPI# Here Physician Comment/ : Change Physician Signature Please Sign/Date Here & Date Requested
--- NOTE | 2025-04-20 12:14 | OT.OPODN ---
OT Outpatient Ortho Daily Note OT Outpatient Ortho Daily Note* Start: 04/20/25 08:09 Freq: Status: Active Protocol: Document 04/20/25 08:10 AMB (Rec: 04/20/25 12:13 AMB [id number]) E-signed By Isa Rust, OTR/L, CLT, EMERGENCY MEDICINE PHYSICIAN ASSISTANT Type of Note Type of Note Type of Note Daily Note Visit Number 1 Insurance Information Insurance Medicare B Information Other Insurance [employer] Outpatient History/Precautions Current Condition/Medical Diagnosis Referring Provider Dr Fabian Medical Diagnoses Z98.890 S/P LUE CMC arthoplasty Treatment Diagnosis R3.1 Weakness LUE hand M25.642 Stiffness LUE hand Date of Onset 03/23/25 Medical Conditions HTN,CA,Arthritis Other Conditions PMH (reviewed and copied from ortho chart): History of arthroplasty of finger of left hand (Acute 03/23/25) 2 weeks postop left thumb CMC arthroplasty/ suspensionplasty with Arthrex FiberLock suspension system. Dr. Fabian, 03/23/25 Z96.692 - Finger-joint replacement of left hand (ICD-10 ) Pancreatic cyst (Acute) K86.2 - Cyst of pancreas (ICD-10) Dyslipidemia (Acute) E78.5 - Hyperlipidemia, unspecified (ICD-10) Hypertension (Acute) I10 - Essential (primary) hypertension (ICD-10) Osteoarthritis of carpometacarpal joint of left thumb ( Acute) Severe M18.12 - Unilateral primary osteoarthritis of first carpometacarpal joint, left hand (ICD-10) Neuroendocrine carcinoma (Acute) follows with Kinney, RLL, has been resected C7A.8 - Other malignant neuroendocrine tumors (ICD-10) Malignant melanoma (Acute) ressected 09/2013; follows with derm C43.9 - Malignant melanoma of skin, unspecified (ICD-10 ) Medical History (Updated 03/03/25 @ 12:02 by Marycruz aSlter MD) Normal cardiac stress test Group B streptococcal UTI N39.0 - Urinary tract infection, site not specified ( ICD-10) B95.1 - Streptococcus, group b, as the cause of diseases classified elsewhere (ICD-10) History of arthroplasty of right wrist (03/10/23) Z96.631 - Presence of right artificial wrist joint (ICD -10) Anxiety F41.9 - Anxiety disorder, unspecified (ICD-10) Arthritis M19.90 - Unspecified osteoarthritis, unspecified site ( ICD-10) Incontinence R32 - Unspecified urinary incontinence (ICD-10) Reflux esophagitis K21.00 - Gastro-esophageal reflux disease with esophagitis, without bleeding (ICD-10) Elevated cholesterol E78.00 - Pure hypercholesterolemia, unspecified (ICD-10 ) Benign thyroid cyst E04.1 - Nontoxic single thyroid nodule (ICD-10) Surgical History (Updated 04/05/25 @ 11:31 by Teo Duval PA-C) History of arthroplasty of finger of left hand () Z96.692 - Finger-joint replacement of left hand (ICD-10 ) 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/24) Z96.651 - Presence of right artificial knee joint (ICD- 10) History of arthroplasty of finger of right hand () Z96.691 - Finger-joint replacement of right hand (ICD- 10) History of left knee replacement (01/21/22) Z96.652 - Presence of left artificial knee joint (ICD- 10) Status post surgical removal of malignant neoplasm of skin Z98.890 - Other specified postprocedural states (ICD-10 ) Status 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 Social History Employment Status Retired Hobbies Traveling Ortho Subjective Subjective Subjective Pt feels she is doing ok. States she really struggled with her post op dressing following surgery, had to have it replaced a week early as it was too tight. Pt also had an episode where she was pulling up her pants and felt a sharp pain through the dorsum of her hand and wrist and she was afraid she hurt something, states she did go in and have it checked, and everything was ok. She has not had the sharp pain since. Pt is eager to get her custom splint today as she has been uncomfortable in the one she got at her ortho visit. Pt denies pain today, states it's a little uncomfortable . OT OP Daily Ortho Note/Assessment Manual Therapy Manual Therapy 7 Minutes (minutes) Manual Therapy Pt was provided with training and practice in basic HEP Comments to encourage AROM and edema reduction. Exs included: Access Code: [email or web address] URL: [email or web address] Date: 04/20/2025 Prepared by: Celia Rust Exercises - Seated Full Fist AROM - 4 x daily - 7 x weekly - 1 sets - 10 reps - Thumb Opposition - 4 x daily - 7 x weekly - 1 sets - 10 reps - Seated Thumb IP Flexion AROM with Blocking - 4 x daily - 7 x weekly - 1 sets - 10 reps - Seated Thumb Abduction Adduction AROM - 4 x daily - 7 x weekly - 1 sets - 10 reps - Thumb AROM: Palmar Abduction - 4 x daily - 7 x weekly - 1 sets - 10 reps - Wrist AROM Radial Ulnar Deviation - 4 x daily - 7 x weekly - 1 sets - 10 reps - Wrist Flexion Extension AROM - 4 x daily - 7 x weekly - 1 sets - 10 reps - Finger/Thumb abduction - 4 x daily - 7 x weekly - 1 sets - 10 reps Splinting Splinting Minutes ( 35 minutes) Splinting Comments Pt was provided with a custom fabricated, radial based thumb spica orthosis for protected healing of the LUE CMC arthroplasty. Thumb, wrist and hand positions allow for functional use of thumb with fingers for light activities and best positioning for proper healing. Pt was also provided with training and practice in donning and doffing the orthosis as well as instructions to wear splint with all activities and at night. Pt can remove for hygiene, during HEP, and if sitting at rest. Pt was also given a compression glove to wear under her splint. Pt was instructed to monitor her skin and report to treating therapist if she develops any skin irritation or discomfort. Education regarding rationale for the orthosis was discussed and agreed upon. Total Occupational Therapy Time Occupational Therapy 7 Minutes Home Program Home Program Home Program Initiated Home Program Access Code: [email or web address] Specifics URL: [email or web address] Date: 04/20/2025 Prepared by: Celia Rust Exercises - Seated Full Fist AROM - 4 x daily - 7 x weekly - 1 sets - 10 reps - Thumb Opposition - 4 x daily - 7 x weekly - 1 sets - 10 reps - Seated Thumb IP Flexion AROM with Blocking - 4 x daily - 7 x weekly - 1 sets - 10 reps - Seated Thumb Abduction Adduction AROM - 4 x daily - 7 x weekly - 1 sets - 10 reps - Thumb AROM: Palmar Abduction - 4 x daily - 7 x weekly - 1 sets - 10 reps - Wrist AROM Radial Ulnar Deviation - 4 x daily - 7 x weekly - 1 sets - 10 reps - Wrist Flexion Extension AROM - 4 x daily - 7 x weekly - 1 sets - 10 reps - Finger/Thumb abduction - 4 x daily - 7 x weekly - 1 sets - 10 reps OT Objective Data Skin/Wounds/Edema Comments 04/20/25 Mild, expected swelling is appreciated in pt's left hand. Surgical incision is well healed, no s/s of infection. Brisk capillary refill is present; skin color is appropriate. Sensation is intact. OT Problems Problems Problems Decreased Strength,Decreased Range of Motion,Decreased Dexterity,Pain,Decreased Coordination,Lifting,Gripping, Pinching Other Problems Opening Containers,Computer,Fasteners Patient Potential Good Assessment Assessment Assessment Pt was seen in clinic today for fabrication of custom radial-based thumb spica orthosis for protected healing of LUE CMC arthroplasty/suspensionplasty with Arthrex FiberLock suspension system and to initiate ROM HEP. Pt will f/u in the [facility] for evaluation and treatment next week. Pt tolerated today's session without incident. Pt was pleased with her orthosis fit and was able to demonstrate donning and doffing without a problem. Pt was also able to demonstrate basic ROM exs very well, stated it actually felt good to get her hand moving. Pt has met her goals for today and will establish new goals with evaluating therapist. Occupational Therapy Treatment Plan - OP Potential Rehabilitation Good Potential Set Goals Goals Set with Yes Patient Goals Goals Goals to be accomplished today: 1. Pt will be provided with custom, radial based thumb spica orthosis for protected healing of the LUE CMC arthroplasty. This goal was met today. 2. Pt will demonstrate appropriate donning and doffing of her orthosis. This goal was met today. Goal to be accomplished by 05/18/25: 1. Pt will demonstrate independence and compliance with home program including orthosis use and exs in order to maximize positive outcomes and restore full, functional use of her hand. Goals to be accomplished by 05/25/25: 1. Pt will demonstrate full, pain-free AROM of the LUE hand and wrist to allow for increased FMC during tasks such as buttoning buttons and picking up small objects. 2. Pt will demonstrate heating element builder and pinch strength at or near average for her age and gender in order to safely utilize her LUE for higher level ADLs and IADLs such as meal prep. Goals to be accomplished by 06/15/25 1. Pt will verbalize the ability to complete all ADLs and IADLs without difficulty due to pain or weakness in her LUE. Treatment Plan Treatment Plan Evaluation,Edema Control,Joint Mobilization,Manual Therapy,Splinting,Ultrasound,Wound Care/Scar Management ,Therapeutic Exercise,Therapeutic Activities,Self Care/ Home Management,Education Expected Frequency 1-2x Week Expected Duration 12 weeks Occupational Therapy Billing Units Treatment Minutes Untimed Treatment 35 Minutes Timed Treatment 7 Minutes Total Treatment 42 Minutes Ortho Billing Units Wrist/Hand/Finger 1 Orthosis No JNTS Certification Statement Certification Statement I Certify That: Therapy Services Provided,Therapy Plan Established, Therapy Plan Reviewed Recertification Information Recertification Information Initial 04/20/25 Certification Date Recertification 07/19/25 Start Date Reasons to Continue Pt recently underwent LUE CMC suspension arthroplasty Skilled Therapy and demonstrates swelling, pain, weakness, and limited AROM of the LUE. Pt will benefit from continued skilled OT intervention to address deficits and progress through rehabilitation to restore full, pain-free use of her LUE. Pt initiated OT today for fabrication of custom orthosis and to initiate AROM ex. Pt will f/u next week for full evaluation with tests and measures. Rehabilitation Good, pt is very motivated and has shown good Potential compliance in previous OT episode of care following RUE CMC arthroplasty. Click To Default ' Per treatment plan Per treatment plan' Continued Plan of Per treatment plan Care and Interventions Provider Signature Yes Required Provider Signature POC & Medical Necessity Shows Agreement With Physician NPI Number Write NPI# Here Physician Comment/ Comment or Changes Change Physician Signature Please Sign/Date Here & Date Requested
--- NOTE | 2025-04-26 12:53 | OT.OPOE ---
OT Outpatient Ortho Eval OT Outpatient Ortho Eval* Start: 04/20/25 08:09 Freq: Status: Active Protocol: Document 04/26/25 08:17 EROS (Rec: 04/26/25 12:43 EROS [id number]) E-signed By Lorie Mead, OTR/L, CLT OT OP Ortho Eval Details Complexity Complexity Medium Insurance Information Insurance Medicare B Information Other Insurance [employer] Outpatient History/Precautions Current Condition/Medical Diagnosis Referring Provider Dr Fabian Medical Diagnoses Z98.890 S/P LUE CMC arthoplasty Treatment Diagnosis R3.1 Weakness LUE hand M25.642 Stiffness LUE hand Date of Onset 03/23/25 Medical Conditions HTN,CA,Arthritis Other Conditions PMH (reviewed and copied from ortho chart): History of arthroplasty of finger of left hand (Acute 03/23/25) 2 weeks postop left thumb CMC arthroplasty/ suspensionplasty with Arthrex FiberLock suspension system. Dr. Fabian, 03/23/25 Z96.692 - Finger-joint replacement of left hand (ICD-10 ) Pancreatic cyst (Acute) K86.2 - Cyst of pancreas (ICD-10) Dyslipidemia (Acute) E78.5 - Hyperlipidemia, unspecified (ICD-10) Hypertension (Acute) I10 - Essential (primary) hypertension (ICD-10) Osteoarthritis of carpometacarpal joint of left thumb ( Acute) Severe M18.12 - Unilateral primary osteoarthritis of first carpometacarpal joint, left hand (ICD-10) Neuroendocrine carcinoma (Acute) follows with Kinney, RLL, has been resected C7A.8 - Other malignant neuroendocrine tumors (ICD-10) Malignant melanoma (Acute) ressected 09/2013; follows with derm C43.9 - Malignant melanoma of skin, unspecified (ICD-10 ) Medical History (Updated 03/03/25 @ 12:02 by Marycruz Salter MD) Normal cardiac stress test Group B streptococcal UTI N39.0 - Urinary tract infection, site not specified ( ICD-10) B95.1 - Streptococcus, group b, as the cause of diseases classified elsewhere (ICD-10) History of arthroplasty of right wrist (03/10/23) Z96.631 - Presence of right artificial wrist joint (ICD -10) Anxiety F41.9 - Anxiety disorder, unspecified (ICD-10) Arthritis M19.90 - Unspecified osteoarthritis, unspecified site ( ICD-10) Incontinence R32 - Unspecified urinary incontinence (ICD-10) Reflux esophagitis K21.00 - Gastro-esophageal reflux disease with esophagitis, without bleeding (ICD-10) Elevated cholesterol E78.00 - Pure hypercholesterolemia, unspecified (ICD-10 ) Benign thyroid cyst E04.1 - Nontoxic single thyroid nodule (ICD-10) Surgical History (Updated 04/05/25 @ 11:31 by Teo Duval PA-C) History of arthroplasty of finger of left hand () Z96.692 - Finger-joint replacement of left hand (ICD-10 ) 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/24) Z96.651 - Presence of right artificial knee joint (ICD- 10) History of arthroplasty of finger of right hand () Z96.691 - Finger-joint replacement of right hand (ICD- 10) History of left knee replacement (01/21/22) Z96.652 - Presence of left artificial knee joint (ICD- 10) Status post surgical removal of malignant neoplasm of skin Z98.890 - Other specified postprocedural states (ICD-10 ) Status 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 Social History Employment Status Retired Hobbies Traveling Oriented Mental Status No Concerns Ortho Subjective Subjective Subjective 04/26/25:Patient doesn't report any pain today, she reports that her swelling is better than it was but still has noticeable swelling around the L thumb and wrist. She reports no issues with the splint that was made her her last week. Skin was inspected and there are no indents (tight spots) and no redness. Patient reports working on her HEP daily as prescribed. Pt feels she is doing ok. States she really struggled with her post op dressing following surgery, had to have it replaced a week early as it was too tight. Pt also had an episode where she was pulling up her pants and felt a sharp pain through the dorsum of her hand and wrist and she was afraid she hurt something, states she did go in and have it checked, and everything was ok. She has not had the sharp pain since. Pt is eager to get her custom splint today as she has been uncomfortable in the one she got at her ortho visit. Pt denies pain today, states it's a little uncomfortable . Pain Assessment Pain Pain No OT Objective Data Hand Hand Dominance Right Skin/Wounds/Edema Comments 04/26/25: L wrist crease measures at 17.5 cm's and nonaffected R wrist is at 16 cm's 04/20/25 Mild, expected swelling is appreciated in pt's left hand. Surgical incision is well healed, no s/s of infection. Brisk capillary refill is present; skin color is appropriate. Sensation is intact. OT Problems Problems Problems Decreased Strength,Decreased Range of Motion,Decreased Dexterity,Pain,Decreased Coordination,Lifting,Gripping, Pinching Other Problems Opening Containers,Computer,Fasteners Patient Potential Good Assessment Assessment Assessment 04/26/25: Skin was inspected and there are no indents ( tight spots) and no redness noted on the L hand/thumb/ wrist. Her custom radial-based thumb spica orthosis is working well for her. Her next Ortho f/u is next week on 05/05/25. In terms of swelling, L wrist crease measures at 17.5 cm's and nonaffected R wrist is at 16 cm's. Patient has been working on her HEP daily as prescribed. Pt was seen in clinic today for fabrication of custom radial-based thumb spica orthosis for protected healing of LUE CMC arthroplasty/suspensionplasty with Arthrex FiberLock suspension system and to initiate ROM HEP. Pt will f/u in the [facility] for evaluation and treatment next week. Pt tolerated today's session without incident. Pt was pleased with her orthosis fit and was able to demonstrate donning and doffing without a problem. Pt was also able to demonstrate basic ROM exs very well, stated it actually felt good to get her hand moving. Pt has met her goals for today and will establish new goals with evaluating therapist. Occupational Therapy Treatment Plan - OP Potential Rehabilitation Good Potential Set Goals Goals Set with Yes Patient Goals Goals Goals to be accomplished today: 1. Pt will be provided with custom, radial based thumb spica orthosis for protected healing of the LUE CMC arthroplasty. This goal was met today (04/20/25) 2. Pt will demonstrate appropriate donning and doffing of her orthosis. This goal was met today. (04/20/25) Goal to be accomplished by 05/18/25: 1. Pt will demonstrate independence and compliance with home program including orthosis use and exs in order to maximize positive outcomes and restore full, functional use of her hand. -progressing, continue Goals to be accomplished by 05/25/25: 1. Pt will demonstrate full, pain-free AROM of the LUE hand and wrist to allow for increased FMC during tasks such as buttoning buttons and picking up small objects. -progressing, continue 2. Pt will demonstrate geophysical party chief and pinch strength at or near average for her age and gender in order to safely utilize her LUE for higher level ADLs and IADLs such as meal prep. -progressing, continue Goals to be accomplished by 06/15/25 1. Pt will verbalize the ability to complete all ADLs and IADLs without difficulty due to pain or weakness in her LUE. -progressing, continue Treatment Plan Treatment Plan Evaluation,Edema Control,Joint Mobilization,Manual Therapy,Splinting,Ultrasound,Wound Care/Scar Management ,Therapeutic Exercise,Therapeutic Activities,Self Care/ Home Management,Education Expected Frequency 1-2x Week Expected Duration 12 weeks Home Program Home Program Home Program Initiated Home Program Access Code: [email or web address] Specifics URL: [email or web address] Date: 04/20/2025 Prepared by: Celia Rust Exercises - Seated Full Fist AROM - 4 x daily - 7 x weekly - 1 sets - 10 reps - Thumb Opposition - 4 x daily - 7 x weekly - 1 sets - 10 reps - Seated Thumb IP Flexion AROM with Blocking - 4 x daily - 7 x weekly - 1 sets - 10 reps - Seated Thumb Abduction Adduction AROM - 4 x daily - 7 x weekly - 1 sets - 10 reps - Thumb AROM: Palmar Abduction - 4 x daily - 7 x weekly - 1 sets - 10 reps - Wrist AROM Radial Ulnar Deviation - 4 x daily - 7 x weekly - 1 sets - 10 reps - Wrist Flexion Extension AROM - 4 x daily - 7 x weekly - 1 sets - 10 reps - Finger/Thumb abduction - 4 x daily - 7 x weekly - 1 sets - 10 reps Certification Certification Statement I Certify That: Therapy Services Provided,Therapy Plan Established, Therapy Plan Reviewed Certification Information Clinic ID # [id number] Initial 04/20/25 Certification Date Recertification Due 07/13/25 Date Provider Signature Yes Required Provider Signature POC & Medical Necessity Shows Agreement With Physician NPI Number Write NPI# Here Physician Comment/ Comment or Changes Change Physician Signature Please Sign/Date Here & Date Requested
== END 2025-05-25 14:26 | disposition home or self-care (01) ==
PROVIDERS: PCP Family Medicine; Visit Provider Orthopaedic Surgery Sports Medicine
DX: Z48.89 Encounter for other specified surgical aftercare (principal); Z51.89 Encounter for other specified aftercare
CPT/HCPCS: 97110; 97140; 97166; L3808; X5282